=== PATIENT | female | born 1965 | race Caucasian/White ===

== ENCOUNTER 2017-05-15 22:16 | Observation (INO) | payer BC ==
[~2017-05-15] VITALS: Ht 172.7 cm; Wt 90.0 kg
[~2017-05-15 22:16] MED LIST: IBUP400T20 PO; LANTUS2P SQ; LORA2TAB7 PO; METF-382 PO; NAPR500 PO; NOVORP2 SQ
[2017-05-15 22:18] VITALS: BP 163/92; PULSE 102; RESP 18; TEMP 98.9; O2SAT 96
[2017-05-15 22:36] VITALS: BP 165/88; PULSE 90; RESP 18; O2SAT 96
[2017-05-15] MEDS ORDERED: NOVOLOGP2 SQ (22:36)
--- NOTE | 2017-05-15 22:39 | PD ---
HPI Chief Complaint: Chest Pain Time Seen by Provider: 22:39 Travel History International Travel<30 days: No Contact w/Intl Traveler<30days: No Traveled to known affect area: No History of Present Illness HPI 51-year-old female came to the emergency room with history of chest pain that has been there waxing and waning for past 2 days. Patient says it's on the left side of her chest going down her left breast and to her left shoulder and down her left arm up to the elbow. It's a dull ache and discomfort. No aggravating or relieving factor she has identified. Vital signs are stable. Patient has history of diabetes and she has noticed that for past couple days her sugar has been running high anywhere between 350-500. She says she has been taking her medications like she supposed to and the sugars still seems out of control. Her friend is here with her and says that patient has been going through a lot of domestic stress. She has history of high cholesterol upon asking the patient says she is not on any medications for it. She does have a primary care physician. She is not a smoker. No associated shortness of breath or syncopal episode. No history of recent prolonged hospitalization or long distance travel. PFSH Past Medical History Narrative Medical List of her past medical, surgical, social and family history is reviewed from the nursing note. Anemia: Yes (WITH BLOOD TRANSFUSION ) Asthma: No Blood Disorders: No Anxiety: No Depression: No Heart Rhythm Problems: No Cancer: No Cardiovascular Problems: No High Cholesterol: Yes Chemotherapy: No Chest Pain: Yes Congestive Heart Failure: No COPD: No Developmental Delay: Yes Diabetes: Yes Patient Takes Glucophage: Yes (METFORMIN) Diminished Hearing: No Endocrine: No Genitourinary: No Immune Disorder: No Musculoskeletal: No Neurologic: No Psychiatric: No Reproductive: No Respiratory: No Immunizations Current: No Radiation Therapy: No Sleep Apnea: Yes Thyroid Disease: No Influenza Vaccination: No ?: Not Menopausal: Yes : 3 Para: 3 Past Surgical History Abdominal Surgery: Yes (HERNIA REPAIR W/MESH, ABDOMINOPLASTY) Section: Yes (X3) Gynecologic Surgery: Yes (hysterectomy) Hysterectomy: Yes Other Surgery: Yes Social History Alcohol Use: No (DENIES) Tobacco Use: No Substance Use: No Allergies-Medications (Allergen,Severity, Reaction): Coded Allergies: *MDRO Multi-Drug Resistant Organism (Verified Adverse Reaction, Unknown, 05/15/17) MRSA (abdomen-03/29/16) Comments List of her allergies reviewed from the nursing note. Reported Meds & Prescriptions Reported Meds & Active Scripts Active Lisinopril 5 Mg Tab 5 Mg PO DAILY Reported Lantus Inj (Insulin Glargine) 1,000 Unit/10 Ml Vial 60 Units SQ HS Victoza Inj (Liraglutide Inj) 18 Mg/3 Ml Pen 1.8 Mg SQ DAILY Novolog Inj (Insulin Aspart) 1,000 Unit/10 Ml Vial 1-9 Units SQ ACHS Max dose at bedtime:( )units; sugars less than 70,(0)units; sugars 150-199,(1) unit; sugars 200-249,(3) units; sugars 250-299,(5) units; sugars 300-349,(7) units; sugars greater than 349,(9) units Lorazepam 2 Mg Tab 2 Mg PO HS PRN Metformin ER (Metformin HCl) 1,000 Mg Celestina 1,000 Mg PO BID With evening meal Narrative Medication List of her home medications reviewed from the nursing note. Review of Systems Except as stated in HPI: all other systems reviewed are Neg Cardiovascular: Positive: Chest Pain or Discomfort Physical Exam Narrative GENERAL: Awake, alert, moderate distress, morbidly obese SKIN: Focused skin assessment warm/dry. HEAD: Atraumatic. Normocephalic. EYES: Pupils equal and round. No scleral icterus. No injection or drainage. ENT: No nasal bleeding or discharge. Mucous membranes pink and moist. NECK: Trachea midline. No JVD. CARDIOVASCULAR: Regular rate and rhythm. No murmur appreciated. RESPIRATORY: No accessory muscle use. Clear to auscultation. Breath sounds equal bilaterally. GASTROINTESTINAL: Abdomen soft, non-tender, nondistended. Hepatic and splenic margins not palpable. MUSCULOSKELETAL: No obvious deformities. No clubbing. No cyanosis. No edema. NEUROLOGICAL: Awake and alert. No obvious cranial nerve deficits. Motor grossly within normal limits. Normal speech. PSYCHIATRIC: Appropriate mood and affect; insight and judgment normal. Data Data Last Documented VS Orders Orders Electrocardiogram (05/15/17 23:01) Basic Metabolic Panel (Bmp) (05/15/17 23:01) Ckmb (Isoenzyme) Profile (05/15/17 23:01) Complete Blood Count With Diff (05/15/17:) Magnesium (Mg) (05/15/17:) Prothrombin Time / Inr (Pt) (05/15/17:) Act Partial Throm Time (Ptt) (05/15/17:) Troponin I (05/15/17:) Chest, Single Ap (05/15/17:) Ecg Monitoring (05/15/17:) Bilateral Bp Monitoring (05/15/17:) Iv Access Insert/Monitor (05/15/17:) Oximetry (05/15/17:) Oxygen Administration (05/15/17:) Aspirin Chew (Aspirin Chew) (05/15/17:) Sodium Chloride 0.9% Flush (Ns Flush) (05/15/17:) Nitroglycerin Sl (Nitrostat Sl) (05/15/17:15) CKMB (05/15/17 23:10) CKMB% (05/15/17 23:10) Metformin (Glucophage) (05/16/17 00:15) Admit Order (Ed Use Only) (05/16/17 00:09) Place In Observation (05/16/17 00:09) Activity Bed Rest With Brp (05/16/17 00:09) Vital Signs (Adult) Q4H (05/16/17 00:09) Cardiac Rhythm .As Directed (05/16/17 00:09) Notify Dr: Other .PRN (05/16/17 00:09) Notify DrCarla Parameters (05/16/17 00:09) Resp Oxygen Nasal Cannula (05/16/17 ) Ckmb (Isoenzyme) Profile (05/16/17 00:09) Ckmb (Isoenzyme) Profile (05/16/17 03:09) Troponin I (05/16/17 00:09) Troponin I (05/16/17 03:09) Electrocardiogram (05/16/17 00:09) Electrocardiogram (05/16/17 03:09) ^ Obtain (05/16/17 00:09) Sodium Chloride 0.9% Flush (Ns Flush) (05/16/17:15) Sodium Chloride 0.9% Flush (Ns Flush) (05/16/17 09:00) Acetaminophen (Tylenol) (05/16/17 00:15) Ondansetron Inj (Zofran Inj) (05/16/17 00:15) Nitroglycerin Sl (Nitrostat Sl) (05/16/17 00:15) Verifier Operator / Telemetry [id number] (05/16/17 00:09) Labs Laboratory Tests Test 05/15/17 23:10 White Blood Count 8.2 TH/MM3 Red Blood Count 4.75 MIL/MM3 Hemoglobin 14.2 GM/DL Hematocrit 41.3 % Mean Corpuscular Volume 86.9 FL Mean Corpuscular Hemoglobin 29.9 PG Mean Corpuscular Hemoglobin Concent 34.4 % Red Cell Distribution Width 13.5 % Platelet Count 364 TH/MM3 Mean Platelet Volume 7.4 FL Neutrophils (%) (Auto) 45.8 % Lymphocytes (%) (Auto) 42.1 % Monocytes (%) (Auto) 9.9 % Eosinophils (%) (Auto) 1.1 % Basophils (%) (Auto) 1.1 % Neutrophils # (Auto) 3.8 TH/MM3 Lymphocytes # (Auto) 3.5 TH/MM3 Monocytes # (Auto) 0.8 TH/MM3 Eosinophils # (Auto) 0.1 TH/MM3 Basophils # (Auto) 0.1 TH/MM3 CBC Comment DIFF FINAL Differential Comment Prothrombin Time 9.9 SEC Prothromb Time International Ratio 0.9 RATIO Activated Partial Thromboplast Time 29.7 SEC Blood Urea Nitrogen 11 MG/DL Creatinine 0.68 MG/DL Random Glucose 303 MG/DL Calcium Level 9.2 MG/DL Magnesium Level 2.2 MG/DL Sodium Level 134 MEQ/L Potassium Level 3.7 MEQ/L Chloride Level 101 MEQ/L Carbon Dioxide Level 25.8 MEQ/L Anion Gap 7 MEQ/L Estimat Glomerular Filtration Rate 92 ML/MIN Total Creatine Kinase 106 U/L Creatine Kinase MB 1.4 NG/ML Troponin I LESS THAN 0.02 NG/ML MDM Medical Decision Making Medical Screen Exam Complete: Yes Emergency Medical Condition: Yes Medical Record Reviewed: Yes Interpretation(s) Twelve-lead EKG was reviewed by me. Normal sinus rhythm, normal axis, nonspecific ST-T wave changes, LVH by voltage criteria. Heart rate of 95 bpm. Differential Diagnosis ACS, non-STEMI Narrative Course 12:19 AM blood test results are back. Troponin is negative. Blood sugar is 303. I have ordered 500 mg of metformin for her. Initially patient was given 2 baby aspirin and 1 sublingual nitroglycerin. After the nitroglycerin patient says the pain feels better. Patient has significant risk factors for coronary artery disease namely diabetes which is uncontrolled, hypertension, high cholesterol and obesity. I have decided to admit her to the chest pain center so she can be seen by the supervisor bottle house cleaners and ACS ruled out. Patient is agreeable to that plan. Procedures EKG Prior to Arrival: No Diagnosis Primary Impression: Chest pain Qualified Codes: R07.9 - Chest pain, unspecified Additional Impression: Hyperglycemia Admitting Information Admitting Physician Requests: Observation Scripts Lisinopril (Lisinopril) 5 Mg Tab 5 MG PO DAILY for Blood Pressure Management, #30 TAB 2 Refills Prov: Sigrid Burnett WHEAT WASHER 05/16/17 Isabelle Patrick MD May 15, 2017 22:39
[2017-05-15] MEDS ORDERED: NITROGLYCERIN 0.4 MG SL 25 TABS/BTL SL ONE (23:15)
[2017-05-15] MEDS ORDERED: SODIUM CHLORIDE 0.9% FLUSH 10 ML FLUSH IVF PRN (23:15)
[2017-05-15] MEDS ORDERED: ASPIRIN 81 MG CHEW TAB PO ONE (23:15)
[2017-05-15 23:31] LABS: AUTOMATED NEUTROPHIL # 3.8 TH/MM3 (1.8-7.7); BASOPHIL # 0.1 TH/MM3 (0-0.2); BASOPHIL % 1.1 % (0.0-2.0); EOSINOPHIL # 0.1 TH/MM3 (0-0.4); EOSINOPHIL % 1.1 % (0.0-4.0); HEMATOCRIT 41.3 % (35.0-46.0); HEMO FLAGS DIFF FINAL; LYMPH % 42.1 % (9.0-44.0); LYMPHOCYTE # 3.5 TH/MM3 (1.0-4.8); MEAN CELL VOLUME 86.9 FL (80.0-100.0); MEAN CORPUSCULAR HEMOGLOBIN 29.9 PG (27.0-34.0); MEAN CORPUSCULAR HGB CONC 34.4 % (32.0-36.0); MONO % 9.9 % (0.0-8.0); NEUT % 45.8 % (16.0-70.0); PLATELET COUNT 364 TH/MM3 (150-450); RED BLOOD COUNT 4.75 MIL/MM3 (4.00-5.30); RED CELL DISTRIBUTION WIDTH 13.5 % (11.6-17.2); WHITE BLOOD COUNT 8.2 TH/MM3 (4.0-11.0)
--- NOTE | 2017-05-15 23:38 | RADRPT ---
EXAM DATE/TIME: 05/15/2017 23:17 [facility] COMPARISON: No previous studies available for comparison. INDICATIONS : Chest pain in medial chest. MEDICAL HISTORY : None. SURGICAL HISTORY : None. ENCOUNTER: Initial ACUITY: 1 day PAIN SCORE: 0/10 LOCATION: Bilateral chest FINDINGS: A single view of the chest demonstrates the lungs to be symmetrically aerated without evidence of mas s, infiltrate or effusion. The cardiomediastinal contours are unremarkable. Osseous structures are intact. CONCLUSION: No acute disease. Stefan Robledo MD on May 15, 2017 at 23:36 Board Certified Radiologist. This report was verified electronically.
[2017-05-15 23:42] LABS: APTT (PATIENT) 29.7 SEC (24.3-30.1); INTERNATIONAL NORMALIZED RATIO 0.9 RATIO; PROTHROMBIN TIME - PATIENT 9.9 SEC (9.8-11.6)
[2017-05-15 23:51] LABS: ANION GAP 7 MEQ/L (5-15); BICARBONATE 25.8 MEQ/L (21.0-32.0); BLOOD UREA NITROGEN 11 MG/DL (7-18); CHLORIDE 101 MEQ/L (98-107); GLOMERULAR FILTRATION RATE 92 ML/MIN (>89); MAGNESIUM 2.2 MG/DL (1.5-2.5); POTASSIUM 3.7 MEQ/L (3.5-5.1); SODIUM (NA) 134 MEQ/L (136-145)
[2017-05-15 23:55] LABS: CREATINE KINASE 106 U/L (26-192)
[2017-05-16] VITALS (8 sets, daily range): BP systolic 116–132; BP diastolic 60–73; PULSE 73–94; RESP 17–20; TEMP 98.1–98.4; O2SAT 95–98
[2017-05-16 00:08] LABS: CKMB 1.4 NG/ML (0.5-3.6)
[2017-05-16] MEDS ORDERED: ONDANSETRON HCL 4 MG/2 ML VIAL IV PUSH PRN (00:15)
[2017-05-16] MEDS ORDERED: ACETAMINOPHEN 500 MG CPLT PO PRN ×2 (00:15→08:15)
[2017-05-16] MEDS ORDERED: NITROGLYCERIN 0.4 MG SL 25 TABS/BTL SL PRN (00:15)
[2017-05-16] MEDS ORDERED: metFORMIN HCL 500 MG TAB PO ONE (00:15)
[2017-05-16] MEDS ORDERED: SODIUM CHLORIDE 0.9% FLUSH 10 ML FLUSH IV FLUSH PRN (00:15)
[2017-05-16 03:15] LABS: CREATINE KINASE 87 U/L (26-192)
[2017-05-16 05:54] LABS: CREATINE KINASE 57 U/L (26-192)
--- NOTE | 2017-05-16 08:03 | HHI.HP ---
HPI Primary Care Physician Guero Humphries DO Chief Complaint Chest pain History of Present Illness 51 year old female with history of Type II diabetes (dx age 28) and hyperlipidemia (currently not taking medications) presents to the ER for further evaluation of chest pain. Onset 2 weeks ago, progressively worse over last 2 days. Location left anterior chest and under left breast. Radiation to left shoulder and left arm. Characterized as stabbing pain. Duration constant x2 days. Last 2 weeks discomfort waxed and waned in intensity without any known precipitating factors. No associated symptoms of N, V, dyspnea, or diaphoresis. No known precipitating or relieving factors. Severity initially rated 10/10 currently rated 6/10. No particular movements or position makes pain better or worse. Endorses similar pain approx. 4-5 years ago. Review of Systems General: No fatigue,weakness, fever, chills, recent illness, or change in appetite. Reports glucose has been uncontrolled with ranges 300-500. States her PCP instructed her to see an magnetic resonance imaging coordinator due to uncontrolled diabetes. She is in process of establishing with endocrinology. HEENT: No SUMNER, no vision changes CV: And he needs to have chest pain as stated above. No palpitations or dizziness. No know CAD. RESP: No SOB, cough, wheeze, of history of asthma. No recent upper respiratory illness. GI: No nausea, vomiting, or bowel changes. No change in appetite, no unintentional weight gain or weight loss. : No dysuria, urgency, frequency. VASCULAR SURGERY PHYSICIAN: Reports current yeast infection started 2 days ago, has not tried over the counter remedies. Requesting Diflucan. Hx hysterectomy. EXT: Bilateral lower extremities neuropathy. MS: No change in ROM, injury, fall, or recent trauma. NEURO: No difficulty with balance, LOC, motor/sensory deficits PSYCH: No anxiety, depression, or situational stress. SKIN: No rashes, no concerning lesions Past Family Social History Allergies: Coded Allergies: *MDRO Multi-Drug Resistant Organism (Verified Adverse Reaction, Unknown, 05/15/17) MRSA (abdomen-03/29/16) Past Medical History Type 2 Diabetes (dx age 28), HLD (currently not on statins, quit taking 3 years ago), anemia, neuropathy Past Surgical History Hysterectomy, x3, hernia repair with mesh, abdominoplasty Reported Medications Reported Meds & Active Scripts Active Reported Novolog Inj (Insulin Aspart) 1,000 Unit/10 Ml Vial 1-9 Units SQ ACHS Max dose at bedtime:( )units; sugars less than 70,(0)units; sugars 150-199,(1) unit; sugars 200-249,(3) units; sugars 250-299,(5) units; sugars 300-349,(7) units; sugars greater than 349,(9) units Lorazepam 2 Mg Tab 2 Mg PO HS PRN Ibuprofen 400 Mg Tab 400 Mg PO Q6H PRN Metformin ER (Metformin HCl) 1,000 Mg Celestina 1,000 Mg PO BID With evening meal Lantus 60 units QHS Victoza 1.8mg Subq QD Active Ordered Medications Current Medications Medications (Trade) Dose Ordered Sig/Christy Route Start Time Stop Time Status Last Admin (NS Flush) 2 ml UNSCH PRN IVF 05/15/17 23:15 05/15/17 23:15 (NS Flush) 2 ml UNSCH PRN IV FLUSH 05/16/17 00:15 (NS Flush) 2 ml BID IV FLUSH 05/16/17 09:00 (Tylenol) 500 mg Q4H PRN PO 05/16/17 00:15 05/16/17 01:57 (Zofran Inj) 4 mg Q6H PRN IV PUSH 05/16/17 00:15 (Nitrostat Sl) 0.4 mg Q5M PRN SL 05/16/17 00:15 Family History Positive for early onset cardiovascular disease. Father had total of 4 MIs, first [place] age 45. Mother from CHF, complications diabetes, and had a CVA. Sister CAD with stent placed age 46. Social History Known diabetes, reporting recently uncontrolled. Known hyperlipidemia, reporting changing PCP 3 years ago and new PCP did not continue statin therapy. No known CAD or hypertension. Lifelong nonsmoker. Denies alcohol or illegal drug use. Disabled. Walks reporting she must stop after 1/2 mile due to neuropathy pain. Past Cardiac Testing 03/16/11 Lexiscan-Negative for stress induced ischemia. EF 54%. Recently reestablished with Dr. Thorpe, seen him 2 months ago. No recent stress testing. Reports he ordered a stress test but was unable to pay required co-pay to complete test. Physical Exam Vital Signs Vital Signs Date Time Temp Pulse Resp B/P (MAP) Pulse Ox O2 Delivery O2 Flow Rate FiO2 05/16/17 07:20 98.1 75 20 128/73 (91) 95 05/16/17 05:46 74 05/16/17 02:14 98.3 77 17 116/73 (87) 98 05/16/17 00:48 97 05/16/17 00:07 85 18 125/66 (85) 97 Room Air 05/15/17 22:36 90 18 165/88 (113) 96 Room Air 05/15/17 22:18 98.9 102 18 163/92 (115) 96 Room Air Physical Exam GENERAL: Alert WN, WD, NAD, pleasant, obese female HEAD: NC, AT EYES: Sclera clear, conjunctiva without injection, pupils equal and round ENT: Mucous membranes pink and moist, no nasal discharge or bleeding CV: RRR, 1/6 faint systolic murmur, without rub, gallop, no JVD, S1-S2 no S3- S4. RESP: Clear lungs throughout bilateral, no crackles, wheeze, rhonchi, symmetrical chest rise, nonlabored, able to speak in full sentences ABD: Soft, NT, ND, positive bowel tones, obese EXT: Pulses +24, no dependent edema MS: Normal tone 4 extremities, nontender, no obvious deformities, full range of motion NEURO: CN II through CN XII grossly intact, motor strength 5/5 PSYCH: A+O 3, pleasant affect, appropriate speech, appropriate mood and affect , insight and judgment SKIN: Normal turgor, normal texture, no lesions, no rashes, brisk cap refill, even hair distribution Laboratory Laboratory Tests Test 05/15/17 23:10 05/16/17 02:41 05/16/17 05:00 White Blood Count 8.2 Red Blood Count 4.75 Hemoglobin 14.2 Hematocrit 41.3 Mean Corpuscular Volume 86.9 Mean Corpuscular Hemoglobin 29.9 Mean Corpuscular Hemoglobin Concent 34.4 Red Cell Distribution Width 13.5 Platelet Count 364 Mean Platelet Volume 7.4 Neutrophils (%) (Auto) 45.8 Lymphocytes (%) (Auto) 42.1 Monocytes (%) (Auto) 9.9 Eosinophils (%) (Auto) 1.1 Basophils (%) (Auto) 1.1 Neutrophils # (Auto) 3.8 Lymphocytes # (Auto) 3.5 Monocytes # (Auto) 0.8 Eosinophils # (Auto) 0.1 Basophils # (Auto) 0.1 CBC Comment DIFF FINAL Differential Comment Prothrombin Time 9.9 Prothromb Time International Ratio 0.9 Activated Partial Thromboplast Time 29.7 Blood Urea Nitrogen 11 Creatinine 0.68 Random Glucose 303 Calcium Level 9.2 Magnesium Level 2.2 Sodium Level 134 Potassium Level 3.7 Chloride Level 101 Carbon Dioxide Level 25.8 Anion Gap 7 Estimat Glomerular Filtration Rate 92 Total Creatine Kinase 106 87 57 Creatine Kinase MB 1.4 Troponin I LESS THAN 0.02 LESS THAN 0.02 LESS THAN 0.02 Result Diagram: 05/15/17230905/15/172309 Imaging Last Impressions Chest X-Ray 05/15/172300 Signed Impressions: Service Date/Time: Monday, May 15, 2017 23:17 - CONCLUSION: No acute disease. Stefan Robledo MD Course EKG NSR, nonspecific ST changes Caprini VTE Risk Assessment Caprini VTE Risk Assessment: No/Low Risk (score <= 1) Caprini Risk Assessment Model Point Value = 1 Point Value = 2 Point Value = 3 Point Value = 5 Age 41-60 Minor surgery BMI > 25 kg/m2 Swollen legs Varicose veins or History of unexplained or recurrent spontaneous Oral contraceptives or hormone replacement Sepsis (< 1 month) Serious lung disease, including pneumonia (< 1 month) Abnormal pulmonary function Acute myocardial infarction Congestive heart failure (< 1 month) History of inflammatory bowel disease Medical patient at bed rest Age 61-74 Arthroscopic surgery Major open surgery (> 45 min) Laparoscopic surgery (> 45 min) Malignancy Confined to bed (> 72 hours) Immobilizing plaster cast Central venous access Age >= 75 History of VTE Family history of VTE Factor V Leiden Prothrombin [id number] Lupus anticoagulant Anticardiolipin antibodies Elevated serum homocysteine Heparin-induced thrombocytopenia Other congenital or acquired thrombophilia Stroke (< 1 month) Elective arthroplasty Hip, pelvis, or leg fracture Acute spinal cord injury (< 1 month) Prophylaxis Regimen Total Risk Factor Score Risk Level Prophylaxis Regimen 0-1 Low Early ambulation 2 Moderate Order ONE of the following: *Sequential Compression Device (SCD) *Heparin 5000 units SQ BID 3-4 Higher Order ONE of the following medications: *Heparin 5000 units SQ TID *Enoxaparin/Lovenox 40 mg SQ daily (WT < 150 kg, CrCl > 30 mL/min) *Enoxaparin/Lovenox 30 mg SQ daily (WT < 150 kg, CrCl > 10-29 mL/min) *Enoxaparin/Lovenox 30 mg SQ BID (WT < 150 kg, CrCl > 30 mL/min) AND/OR *Sequential Compression Device (SCD) 5 or more Highest Order ONE of the following medications: *Heparin 5000 units SQ TID (Preferred with Epidurals) *Enoxaparin/Lovenox 40 mg SQ daily (WT < 150 kg, CrCl > 30 mL/min) *Enoxaparin/Lovenox 30 mg SQ daily (WT < 150 kg, CrCl > 10-29 mL/min) *Enoxaparin/Lovenox 30 mg SQ BID (WT < 150 kg, CrCl > 30 mL/min) AND *Sequential Compression Device (SCD) Assessment and Plan Assessment and Plan #1 Atypical chest pain-admitted to chest pain center. Ruled out with 3 sets of EKGs, cardiac enzymes, and monitored overnight. Seen and evaluated by Dr. German. Chest discomfort most likely musculoskeletal in nature. Due to multiple risk factors will proceed with nuclear treadmill stress testing. If unremarkable will discharge later this afternoon with follow-up with PCP. #2 Diabetes type 2-SSI moderate dose coverage, continue lantus and victoza, discussed importance of tight blood glucose control, reducing sugar, refined flour, and sugary drink intake. Discussed importance of following up with endocrinology as instructed by her PCP. Diabetic guidelines for statin and LILO inhibitor therapy discussed. Follow with PCP and discuss both these therapies. Lisinopril 5mg QD prescription given. #3 Vaginal candidiasis-Fluconazole 150mg PO single dose 1305-discussed lexiscan results in length, including dyskinetic findings suggest may be due to computer misidentification. Copy of report given at discharge for her records and her PCP. Sigrid Burnett May 16, 2017 08:03
[2017-05-16] MEDS ORDERED: GLUCAGON 1 MG/ML VIAL OTHER PRN (08:15)
[2017-05-16] MEDS ORDERED: DEXTROSE 50% IN WATER 50 ML VIAL(D50) IV PUSH PRN (08:15)
[2017-05-16] MEDS ORDERED: SODIUM CHLORIDE 0.9% FLUSH 10 ML FLUSH IV FLUSH SCH (09:00)
[2017-05-16] MEDS ORDERED: ASPIRIN 325 MG TAB PO SCH (09:00)
[2017-05-16] MEDS ORDERED: FLUCONAZOLE 100 MG TAB PO ONE (11:15)
[2017-05-16] MEDS ORDERED: VICT18IN SQ (11:19)
[2017-05-16] MEDS ORDERED: LANTUS2P SQ (11:19)
[2017-05-16] MEDS ORDERED: PILL SPLITTER OTHER PRN (11:30)
[2017-05-16] MEDS ORDERED: INSULIN ASPART SUPPLEMENTAL SCALE SQ SCH (12:00)
--- NOTE | 2017-05-16 12:16 | RADRPT ---
EXAM DATE/TIME: 05/16/2017 09:51 [facility] COMPARISON: MYOCARDIAL PERF TREADMILL SPECT, GATED W/EF, March 16, 2011, 16:16. INDICATIONS : Angina DOSE: 26.5 mCi Tc99m Myoview at stress 8.4 mCi Tc99m Myoview at rest REST HEART RATE: 105 BPM TARGET HEART RATE: 145 BPM MAX HEART RATE: 142 BPM REST BLOOD PRESSURE: 124/78 mmHg MAX BLOOD PRESSURE: 148/80 mmHg EJECTION FRACTION: 59% MEDICAL HISTORY : Hypercholesterolemia. SURGICAL HISTORY : Hysterectomy. section. Abdominoplasty ENCOUNTER: Initial ACUITY: 2 days LOCATION: Left chest TECHNIQUE: The patient underwent upright treadmill exercise in the chest pain center. Continuous ECG tracing wa s monitored during stress. Gated SPECT imaging was performed after stress, and conventional SPECT im aging was performed at rest. The examination was performed on a SPECT/CT scanner, both attenuation-c orrected and non-corrected datasets were reviewed. FINDINGS: DISTRIBUTION: The maximum perfused segment at stress is in the lateral wall. PERFUSION STUDY: The pattern of perfusion at stress is within normal limits with regional variations in perfusion in t he left ventricular segments on the attenuation corrected data set with a 25%. No evidence of redist ribution.. GATED STUDY: There is intact wall motion and thickening. There is questionable dyskinesia of the basal septal seg ment; this is potentially due to missed tracking of the ventricular wall by the computer algorithm. CONCLUSION: 1. No evidence of stress-induced ischemia. 2. Left ventricular ejection fraction is normal at 59%. 3. Questionable dyskinesia of the basal septal wall is probably due to misregistration of the compute r wall identification. If there is clinical concern for dyskinesia, further assessment with echocard iography could be considered. RISK CATEGORY: Low (<1% Annual Mortality Rate) Daniel Vasquez MD on May 16, 2017 at 12:05 Board Certified Radiologist. This report was verified electronically.
[2017-05-16] MEDS ORDERED: METFORMIN 1000 MG PO SCH (12:45)
[2017-05-16] MEDS ORDERED: NON-FORMULARY DRUG (Liraglutide Inj (Victoza Inj) 1.8 MG) SQ SCH (12:45)
--- NOTE | 2017-05-16 12:52 | EKG ---
Date Performed: 05/15/2017 Time Performed: 22:30:13 PTAGE: 51 years EKG: Sinus rhythm MODERATE VOLTAGE CRITERIA FOR LVH, CONSIDER NORMAL VARIANT NONSPECIFIC T-WAVE ABNORMALITY BORDERLINE ECG Since previous tracing, no significant change noted NO PREVIOUS TRACING DOCTOR: Fernanda German Interpretating Date/Time 05/16/2017 12:52:15
--- NOTE | 2017-05-16 12:55 | EKG ---
Date Performed: 05/16/2017 Time Performed: 03:17:53 PTAGE: 51 years EKG: Sinus rhythm MINIMAL VOLTAGE CRITERIA FOR LVH, CONSIDER NORMAL VARIANT BORDERLINE ECG Since PREVIOUS TRACING , no significant change noted PREVIOUS TRACIN03/04/2016 13.36 DOCTOR: Fernanda German Interpretating Date/Time 05/16/2017 12:55:14
--- NOTE | 2017-05-16 12:56 | EKG ---
Date Performed: 05/16/2017 Time Performed: 05:34:55 PTAGE: 51 years EKG: Sinus rhythm NORMAL ECG Since PREVIOUS TRACING , no significant change noted PREVIOUS TRACIN05/16/2017 03.17 DOCTOR: Fernanda German Interpretating Date/Time 05/16/2017 12:55:25
--- NOTE | 2017-05-16 12:59 | TR ---
Date Performed: 05/16/2017 Time Performed: 10:37:48 DOCTOR: Fernanda German DRUG LIST: CLINICAL HISTORY: CHEST PAIN REASON FOR TEST: REASON FOR ENDING: OBSERVATION: CONCLUSION: Mike protocol completed. Stopped sec to reaching target heart rate and leg fatigue. Maximum GE=768 Target HR Achieved=83.0% Maximum IH=995/80 Total Exercise Time=4:36. No repord chest pain. No ectopy. Fair exercise tolerance. Normal bp response. REcovery quick and unremarkable. Nucle ar images pending. COMMENTS:
[2017-05-16] MEDS ORDERED: LISI-519 PO (13:28)
--- NOTE | 2017-05-16 13:28 | HHI.DCPOC ---
Discharge Care Plan Diagnosis: (1) Musculoskeletal chest pain (2) Type 2 diabetes mellitus Goals to Promote Your Health * To prevent worsening of your condition and complications * To maintain your health at the optimal level Directions to Meet Your Goals Take your medications as prescribed Follow your dietary instruction Follow activity as directed Keep your appointments as scheduled Take your immunizations and boosters as scheduled If your symptoms worsen call your PCP, if no PCP go to Urgent Care Center or Emergency Room Smoking is Dangerous to Your Health. Avoid second hand smoke Call the 24-hour hour crisis hotline for domestic abuse at Sigrid Burnett May 16, 2017 13:28
== END 2017-05-16 14:25 | disposition home or self-care (01) ==
LOC: NEPC 22:16 → NEDA 05-16 00:15 → NEPGCP 05-16 01:49
PROVIDERS: ADMIT Internal Medicine Cardiovascular Disease; ATTEND Internal Medicine Cardiovascular Disease
DX: R07.89 Other chest pain (principal); E11.65 Type 2 diabetes mellitus with hyperglycemia; B37.3 Candidiasis of vulva and vagina; R94.31 Abnormal electrocardiogram [ECG] [EKG]; E78.5 Hyperlipidemia, unspecified; G47.30 Sleep apnea, unspecified; G62.9 Polyneuropathy, unspecified; Z79.899 Other long term (current) drug therapy
CPT/HCPCS: 71010; 78452; 80048; 82550; 82552; 82948; 83735; 84484; 85025; 85610; 85730; 93005; 93017; 96372; 99285; A9502; G0378; J1815

== ENCOUNTER 2017-06-29 20:59 | Emergency (ER) | payer BC ==
[~2017-06-29] VITALS: Ht 172.7 cm; Wt 98.6 kg
[~2017-06-29 20:59] MED LIST changes: -IBUP400T20 PO; +LISI-519 PO; -NAPR500 PO; +NOVOLOGP2 SQ; -NOVORP2 SQ; +VICT18IN SQ
[2017-06-29 21:01] VITALS: BP 170/83; PULSE 107; RESP 18; TEMP 97.5; O2SAT 98
[2017-06-29 21:25] VITALS: BP 170/83; PULSE 107; RESP 18; TEMP 97.5; O2SAT 98
--- NOTE | 2017-06-29 22:30 | RADRPT ---
EXAM DATE/TIME: 06/29/2017 22:07 [facility] COMPARISON: No previous studies available for comparison. INDICATIONS : No known injury. Pain radiating down left hip and leg for four days. MEDICAL HISTORY : Diabetes mellitus type II. SURGICAL HISTORY : None. ENCOUNTER: Initial ACUITY: 1 day PAIN SCORE: 7/10 LOCATION: Left Hip FINDINGS: Mild degenerative changes are noted involving the hip joints bilaterally. No acute fracture or disloc ation of the left hip. CONCLUSION: No acute fracture or dislocation of the left hip. Mild degenerative changes involving the hips bilaterally. Aleksander Fish MD on June 29, 2017 at 22:26 Board Certified Radiologist. This report was verified electronically.
--- NOTE | 2017-06-29 22:31 | PD ---
HPI . Hip and low back pain Chief Complaint: Musculoskeletal Complaint Time Seen by Provider: 21:43 Travel History International Travel<30 days: No Contact w/Intl Traveler<30days: No Traveled to known affect area: No History of Present Illness HPI This patient presents with chief complaint of left hip and left low back pain. Onset was 4 days ago. Pain is exacerbated by standing and stepping. She rates the pain 8/10. She mentions that she is out of her Lortab and that she is followed by pain management but did not see pain management this past week because they want to refer her to a neurosurgeon. She states that she is followed by pain management because of back pain. PFSH Past Medical History Anemia: Yes (WITH BLOOD TRANSFUSION ) Asthma: No Blood Disorders: No Anxiety: No Depression: No Heart Rhythm Problems: No Cancer: No Cardiac Catheterization: No Cardiovascular Problems: No High Cholesterol: Yes Chemotherapy: No Chest Pain: Yes Congestive Heart Failure: No COPD: No Developmental Delay: Yes Diabetes: Yes Patient Takes Glucophage: Yes Diminished Hearing: No Endocrine: No Genitourinary: No Immune Disorder: No Musculoskeletal: No Neurologic: No Psychiatric: No Reproductive: No Respiratory: No Immunizations Current: No Radiation Therapy: No Sleep Apnea: Yes Thyroid Disease: No Influenza Vaccination: No ?: Not Menopausal: Yes : 3 Para: 3 Past Surgical History Abdominal Surgery: Yes (HERNIA REPAIR W/MESH, ABDOMINOPLASTY) Section: Yes (X3) Coronary Artery Bypass Graft: No Gynecologic Surgery: Yes (hysterectomy) Hysterectomy: Yes (Complete) Other Surgery: Yes Family History Family Myocardial Infarction: Yes (MOTHER AND FATHER ) Social History Alcohol Use: No (DENIES) Tobacco Use: No Substance Use: No Allergies-Medications (Allergen,Severity, Reaction): Coded Allergies: *MDRO Multi-Drug Resistant Organism (Verified Adverse Reaction, Unknown, 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 (abdomen-03/29/16) Reported Meds & Prescriptions Reported Meds & Active Scripts Active Lisinopril 5 Mg Tab 5 Mg PO DAILY Reported Lantus Inj (Insulin Glargine) 1,000 Unit/10 Ml Vial 60 Units SQ HS Victoza Inj (Liraglutide Inj) 18 Mg/3 Ml Pen 1.8 Mg SQ DAILY Novolog Inj (Insulin Aspart) 1,000 Unit/10 Ml Vial 1-9 Units SQ ACHS Max dose at bedtime:( )units; sugars less than 70,(0)units; sugars 150-199,(1) unit; sugars 200-249,(3) units; sugars 250-299,(5) units; sugars 300-349,(7) units; sugars greater than 349,(9) units Lorazepam 2 Mg Tab 2 Mg PO HS PRN Metformin ER (Metformin HCl) 1,000 Mg Celestina 1,000 Mg PO BID With evening meal Review of Systems Musculoskeletal: Positive: Myalgias, Arthralgias Physical Exam Narrative GENERAL: Awake and alert and in no acute distress. SKIN: Warm and dry. HEAD: Normocephalic/atraumatic. EYES: Pupils are equal. Extraocular movements are intact. NECK: Normal range of motion. CARDIOVASCULAR: Regular rate and rhythm. RESPIRATORY: Nonlabored respirations. MUSCULOSKELETAL: Atraumatic. Her pain is in the left groin and left buttock. No significant tenderness to palpation. No pain with log rolling of the hip. Distally neurovascularly intact. NEUROLOGICAL: Nonfocal. PSYCHIATRIC: Appropriate mood and affect. Data Data Last Documented VS Vital Signs Date Time Temp Pulse Resp B/P (MAP) Pulse Ox O2 Delivery O2 Flow Rate FiO2 06/29/17 21:28 18 06/29/17 21:25 97.5 18 170/83 (112) 98 Orders Orders Hip, Uni(Ap&Lat) W Ap Pelvis (06/29/17 21:43) MDM Medical Decision Making Medical Screen Exam Complete: Yes Emergency Medical Condition: Yes Differential Diagnosis Differential diagnosis of joint pain includes but is not limited to arthritis, gout, sprain/strain, fracture, dislocation, bursitis Narrative Course This patient presents with left hip and buttock pain. It is atraumatic. She reports that she is out of Lortab which she takes for chronic back pain. Left hip x-ray to my interpretation is negative for fracture or dislocation. She needs to follow-up with her primary care physician or pain management physician for continued pain management. In the meantime, she may take an over- the-counter analgesics. Diagnosis Primary Impression: Left hip pain Patient Instructions: General Instructions, Hip Pain (ED) Additional Instructions: [id number] pain medication as needed. Disposition: 01 DISCHARGE HOME Condition: Stable Melanie Nolan MD Jun 29, 2017 22:31
[2017-06-29 22:41] VITALS: BP 140/77
== END 2017-06-29 22:45 | disposition home or self-care (01) ==
LOC: PHED 20:59
DX: M25.552 Pain in left hip (principal); E11.9 Type 2 diabetes mellitus without complications; Z79.4 Long term (current) use of insulin
CPT/HCPCS: 73502; 99283

== ENCOUNTER 2017-08-23 20:08 | Emergency (ER) | payer BC, OTHER ==
[2017-08-23 20:22] VITALS: BP 134/80; PULSE 97; RESP 20; TEMP 99; O2SAT 97
[2017-08-23 21:03] LABS: BILIRUBIN, URINE NEG (NEG); BLOOD, URINE NEG (NEG); GLUCOSE,URINE 1000 OR GREATER mg/dL (NEG); KETONE, URINE NEG (NEG); NITRITE,URINE NEG (NEG); URINE LEUKOCYTE ESTERASE NEG (NEG)
[2017-08-23] MEDS ORDERED: LISI10TA3 PO (21:07)
[2017-08-23 21:12] LABS: URINE COLOR STRAW (YELLW/STRAW)
[2017-08-23 21:13] LABS: SQUAMOUS EPITHELIAL CELL URINE 0-5 /hpf (0-5); WBC, URINE 0-2 /hpf (0-5)
[2017-08-23 21:38] VITALS: BP 135/75; PULSE 88; RESP 18; O2SAT 98
[2017-08-23 21:54] LABS: AUTOMATED NEUTROPHIL # 3.8 TH/MM3 (1.8-7.7); BASOPHIL % 0.5 % (0.0-2.0); CHLORIDE 98 MEQ/L (98-107); EOSINOPHIL # 0.1 TH/MM3 (0-0.4); EOSINOPHIL % 1.7 % (0.0-4.0); HEMATOCRIT 43.4 % (35.0-46.0); HEMOGLOBIN 13.9 GM/DL (11.6-15.3); LYMPH % 40.4 % (9.0-44.0); MEAN CELL VOLUME 87.7 FL (80.0-100.0); MEAN CORPUSCULAR HEMOGLOBIN 28.1 PG (27.0-34.0); MEAN CORPUSCULAR HGB CONC 32.1 % (32.0-36.0); MEAN PLATELET VOLUME 6.9 FL (7.0-11.0); MONO % 7.7 % (0.0-8.0); MONOCYTE # 0.6 TH/MM3 (0-0.9); NEUT % 49.7 % (16.0-70.0); PLATELET COUNT 412 TH/MM3 (150-450); RED BLOOD COUNT 4.94 MIL/MM3 (4.00-5.30); RED CELL DISTRIBUTION WIDTH 13.1 % (11.6-17.2); SODIUM (NA) 132 MEQ/L (136-145); WHITE BLOOD COUNT 7.5 TH/MM3 (4.0-11.0)
[2017-08-23 21:58] LABS: ALBUMIN 3.6 GM/DL (3.4-5.0); BICARBONATE 28.2 MEQ/L (21.0-32.0); BLOOD UREA NITROGEN 14 MG/DL (7-18); CALCIUM 8.6 MG/DL (8.5-10.1); GLUCOSE,RANDOM 400 MG/DL (74-106)
[2017-08-23 22:01] LABS: ALT (GPT) 28 U/L (10-53); AST (GOT) 15 U/L (15-37); CREATININE 0.86 MG/DL (0.50-1.00); GLOMERULAR FILTRATION RATE 70 ML/MIN (>89)
[2017-08-23 22:03] LABS: TOTAL BILIRUBIN ADULT 0.2 MG/DL (0.2-1.0)
[2017-08-23 22:04] LABS: ALKALINE PHOSPHATASE 195 U/L (45-117)
[2017-08-23] MEDS ORDERED: IOHEXOL 350 MG/ML 10 ML VIAL (for RAD DIAG) IVCONTRAST ONE (22:17)
--- NOTE | 2017-08-23 22:22 | PD ---
HPI Chief Complaint: Abdominal Pain Time Seen by Provider: 21:26 Travel History International Travel<30 days: No Contact w/Intl Traveler<30days: No Traveled to known affect area: No History of Present Illness HPI 51yo F with PMH of DM presents to the ED with c/o right lower abdominal pain for weeks but worst for the last few days. Said pain is sharp, intermittent and radiates from suprapubic to right lower abdomen. Denies any fever, chest pain, sob, n/v, abdominal pain, focal weakness or numbness. PSH include hysterectomy and hernia repair. PFSH Past Medical History Anemia: Yes (WITH BLOOD TRANSFUSION ) Asthma: No Blood Disorders: No Anxiety: No Depression: No Heart Rhythm Problems: No Cancer: No Cardiac Catheterization: No Cardiovascular Problems: No High Cholesterol: Yes Chemotherapy: No Chest Pain: Yes Congestive Heart Failure: No COPD: No Developmental Delay: Yes Diabetes: Yes Patient Takes Glucophage: Yes (1000mg 08/22/17 1900) Diminished Hearing: No Endocrine: No Genitourinary: No Immune Disorder: No Musculoskeletal: No Neurologic: No Psychiatric: No Reproductive: No Respiratory: No Immunizations Current: No Radiation Therapy: No Sleep Apnea: Yes Thyroid Disease: No Influenza Vaccination: No ?: Not Menopausal: Yes : 3 Para: 3 Past Surgical History Abdominal Surgery: Yes (HERNIA REPAIR W/MESH, ABDOMINOPLASTY) Section: Yes (X3) Coronary Artery Bypass Graft: No Gynecologic Surgery: Yes (hysterectomy) Hysterectomy: Yes Other Surgery: Yes Family History Family Myocardial Infarction: Yes (MOTHER AND FATHER ) Social History Alcohol Use: No (DENIES) Tobacco Use: No Substance Use: No Allergies-Medications (Allergen,Severity, Reaction): Coded Allergies: *MDRO Multi-Drug Resistant Organism (Verified Adverse Reaction, Unknown, 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 (abdomen-03/29/16) Reported Meds & Prescriptions Reported Meds & Active Scripts Active Novolog Inj (Insulin Aspart) 1,000 Unit/10 Ml Vial 1-9 Units SQ ACHS 10 Days Max dose at bedtime:( )units; sugars less than 70,(0)units; sugars 150-199,(1) unit; sugars 200-249,(3) units; sugars 250-299,(5) units; sugars 300-349,(7) units; sugars greater than 349,(9) units Tylenol (Acetaminophen) 325 Mg Tab 650 Mg PO Q6H PRN Reported Lisinopril 10 Mg Tab 10 Mg PO DAILY Lantus Inj (Insulin Glargine) 1,000 Unit/10 Ml Vial 60 Units SQ HS Victoza Inj (Liraglutide Inj) 18 Mg/3 Ml Pen 1.8 Mg SQ DAILY Novolog Inj (Insulin Aspart) 1,000 Unit/10 Ml Vial 1-9 Units SQ ACHS Max dose at bedtime:( )units; sugars less than 70,(0)units; sugars 150-199,(1) unit; sugars 200-249,(3) units; sugars 250-299,(5) units; sugars 300-349,(7) units; sugars greater than 349,(9) units Lorazepam 2 Mg Tab 2 Mg PO HS PRN Metformin ER (Metformin HCl) 1,000 Mg Celestina 1,000 Mg PO BID With evening meal Review of Systems Except as stated in HPI: all other systems reviewed are Neg Physical Exam Narrative GENERAL: 51yo F in mild distress. SKIN: Focused skin assessment warm/dry. HEAD: Atraumatic. Normocephalic. EYES: Pupils equal and round. No scleral icterus. No injection or drainage. ENT: No nasal bleeding or discharge. Mucous membranes pink and moist. NECK: Trachea midline. No JVD. CARDIOVASCULAR: Regular rate and rhythm. No murmur appreciated. RESPIRATORY: No accessory muscle use. Clear to auscultation. Breath sounds equal bilaterally. GASTROINTESTINAL: Abdomen soft, +TTP RLQ. +TTP suprapubic region. No rebound tenderness or guarding. MUSCULOSKELETAL: No obvious deformities. No clubbing. No cyanosis. No edema. NEUROLOGICAL: Awake and alert. No obvious cranial nerve deficits. Motor grossly within normal limits. Normal speech. PSYCHIATRIC: Appropriate mood and affect; insight and judgment normal. Data Data Last Documented VS Vital Signs Date Time Temp Pulse Resp B/P (MAP) Pulse Ox O2 Delivery O2 Flow Rate FiO2 08/23/17 23:46 08/23/17 23:45 87 18 98 Room Air 08/23/17 20:22 99.0 Orders Orders Urinalysis - C+S If Indicated (08/23/17 20:50) Complete Blood Count With Diff (08/23/17 21:29) Comprehensive Metabolic Panel (08/23/17 21:29) Lipase (08/23/17 21:29) Ct Abd/Pel W Iv Contrast(Rout) (08/23/17 21:29) Iohexol 350 Inj (Omnipaque 350 Inj) (08/23/17 22:17) Sodium Chlor 0.9% 1000 Ml Inj (Ns 1000 M (08/23/17 22:30) Insulin Human Regular Inj (Novolin R Inj (08/23/17 22:30) Morphine Inj (Morphine Inj) (08/23/17 22:30) Blood Glucose (08/23/17 22:56) Ed Discharge Order (08/23/17 23:34) Labs Laboratory Tests Test 08/23/17 20:50 08/23/17 21:30 Urine Color STRAW Urine Turbidity CLEAR Urine pH 6.0 Urine Specific [place] 1.030 Urine Protein NEG mg/dL Urine Glucose (UA) 1000 OR GREATER mg/dL Urine Ketones NEG mg/dL Urine Occult Blood NEG Urine Nitrite NEG Urine Bilirubin NEG Urine Leukocyte Esterase NEG Urine WBC 0-2 /hpf Urine Squamous Epithelial Cells 0-5 /hpf Microscopic Urinalysis Comment CULT NOT INDICATED White Blood Count 7.5 TH/MM3 Red Blood Count 4.94 MIL/MM3 Hemoglobin 13.9 GM/DL Hematocrit 43.4 % Mean Corpuscular Volume 87.7 FL Mean Corpuscular Hemoglobin 28.1 PG Mean Corpuscular Hemoglobin Concent 32.1 % Red Cell Distribution Width 13.1 % Platelet Count 412 TH/MM3 Mean Platelet Volume 6.9 FL Neutrophils (%) (Auto) 49.7 % Lymphocytes (%) (Auto) 40.4 % Monocytes (%) (Auto) 7.7 % Eosinophils (%) (Auto) 1.7 % Basophils (%) (Auto) 0.5 % Neutrophils # (Auto) 3.8 TH/MM3 Lymphocytes # (Auto) 3.0 TH/MM3 Monocytes # (Auto) 0.6 TH/MM3 Eosinophils # (Auto) 0.1 TH/MM3 Basophils # (Auto) 0.0 TH/MM3 CBC Comment DIFF FINAL Differential Comment Blood Urea Nitrogen 14 MG/DL Creatinine 0.86 MG/DL Random Glucose 400 MG/DL Total Protein 8.0 GM/DL Albumin 3.6 GM/DL Calcium Level 8.6 MG/DL Alkaline Phosphatase 195 U/L Aspartate Amino Transf (AST/SGOT) 15 U/L Alanine Aminotransferase (ALT/SGPT) 28 U/L Total Bilirubin 0.2 MG/DL Sodium Level 132 MEQ/L Potassium Level 4.0 MEQ/L Chloride Level 98 MEQ/L Carbon Dioxide Level 28.2 MEQ/L Anion Gap 6 MEQ/L Estimat Glomerular Filtration Rate 70 ML/MIN Lipase 338 U/L [facility] Medical Decision Making Medical Screen Exam Complete: Yes Emergency Medical Condition: Yes Differential Diagnosis IBS vs. colitis vs. appendicitis Narrative Course 51yo F with DM here with lower abdominal pain for weeks. Labs reviewed, no leukocytosis. H/H normal. Lipase normal. Glucose elevated at 400. Normal anion gap. Normal CO2. Pt given NS IVF and 10 units of regular insulin. UA showed no leukocyte. Pt given morphine with improvement of pain. CT a/p showed no acute abnormality. Appendix is normal. Hepatomegaly with mild diffuse fatty infiltration. Repeat glucose 277. Instructed pt to follow up with primary care physician. Pt is requesting I give her a prescription for novolog. Diagnosis Primary Impression: Abdominal pain Qualified Codes: R10.30 - Lower abdominal pain, unspecified Patient Instructions: General Instructions Departure Forms: Tests/Procedures Additional Instructions: Please follow up with your primary care physician regarding your elevated blood glucose. Return to the ED if symptoms worsen. Med/Other Pt SpecificInfo: Prescription(s) given Scripts Insulin Aspart Inj (Novolog Inj) 1,000 Unit/10 Ml Vial 1-9 UNITS SQ ACHS for Blood Sugar Management for 10 Days, #10 ML 0 Refills Max dose at bedtime:( )units; sugars less than 70,(0)units; sugars 150-199,(1) unit; sugars 200-249,(3) units; sugars 250-299,(5) units; sugars 300-349,(7) units; sugars greater than 349,(9) units Prov: Cornelia Duque DO 08/23/17 Acetaminophen (Tylenol) 325 Mg Tab 650 MG PO Q6H Y for PAIN SCALE 1 TO 4, #20 TAB 0 Refills Prov: Cornelia Duque DO 08/23/17 Disposition: 01 DISCHARGE HOME Condition: Stable Cornelia Duque DO Aug 23, 2017 22:22
[2017-08-23] MEDS ORDERED: SODIUM CHLOR 0.9% 1000 ML INJ 1,000 ML IV ONE (22:30)
[2017-08-23] MEDS ORDERED: INSULIN HUMAN REGULAR 1,000 UNITS/10 ML VIAL SQ ONE (22:30)
[2017-08-23] MEDS ORDERED: MORPHINE SULFATE 2 MG/ML INJ IV PUSH ONE (22:30)
--- NOTE | 2017-08-23 22:44 | RADRPT ---
EXAM DATE/TIME: 08/23/2017 22:04 [facility] COMPARISON: No previous studies available for comparison. INDICATIONS : Abdominal pain. IV CONTRAST: 100 cc Omnipaque 350 (iohexol) IV ORAL CONTRAST: No oral contrast ingested. RADIATION DOSE: 21.36 CTDIvol (mGy) MEDICAL HISTORY : Diabetes mellitus type 2. Hypertension. SURGICAL HISTORY : Hysterectomy. Hernia repair w/ mesh. Abdominoplasty. ENCOUNTER: Initial ACUITY: 1 week PAIN SCALE: 7/10 LOCATION: abdomen TECHNIQUE: Volumetric scanning of the abdomen and pelvis was performed. Using automated exposure control and ad justment of the mA and/or kV according to patient size, radiation dose was kept as low as reasonably achievable to obtain optimal diagnostic quality images. DICOM format image data is available electro nically for review and comparison. FINDINGS: LOWER LUNGS: The visualized lower lungs are clear. LIVER: Mild hepatomegaly with mild diffuse fatty infiltration is noted. No focal mass is noted. There is no dilation of the biliary tree. No calcified gallstones. SPLEEN: Normal size without lesion. PANCREAS: Within normal limits. KIDNEYS: Normal in size and shape. There is no mass, stone or hydronephrosis. ADRENAL GLANDS: Within normal limits. VASCULAR: There is no aortic aneurysm. BOWEL/MESENTERY: The stomach, small bowel, and colon demonstrate no acute abnormality. There is no free intraperitone al air or fluid. The appendix is normal. ABDOMINAL WALL: Within normal limits. RETROPERITONEUM: There is no lymphadenopathy. BLADDER: No wall thickening or mass. REPRODUCTIVE: Within normal limits. INGUINAL: There is no lymphadenopathy or hernia. MUSCULOSKELETAL: Within normal limits for patient age. CONCLUSION: Hepatomegaly with mild diffuse fatty infiltration. Aleksander Fish MD on August 23, 2017 at 22:39 Board Certified Radiologist. This report was verified electronically.
[2017-08-23] MEDS ORDERED: TYLE325T PO (23:01)
[2017-08-23 23:45] VITALS: BP 145/75; PULSE 87; RESP 18; O2SAT 98
[2017-08-23] MEDS ORDERED: NOVOLOGP2 SQ (23:48)
--- NOTE | 2017-08-24 00:49 | HHI.PR ---
Subjective Remarks Patient was seen in er for abdominal pain and also having severe diabetes and has been unable to get prescription from a doctor for insulin. Patient joined [facility] in July and still has not been able to get medication other then metformin and has glucose reading 400 . On exam her abdomen is benign ,CT abdomen showed fatty liver . ER gave patient 10units regular insulin with improvemetn to 200 and will be discharged with prescription for humalog she had been on lantus 65 units ,humulog sliding scale metformin and victosa . [facility] will follow up as out patient ,i will look in [facility] system and find out who patient is assigned to and arrange follow up and medication refill as she is on insulin and according to patient has always had high glucos will refer to [facility] endocrine as well. Objective Vitals GENERAL: SKIN: Warm and dry. HEAD: Atraumatic. Normocephalic. EYES: Pupils equal and round. No scleral icterus. No injection or drainage. ENT: No nasal bleeding or discharge. Mucous membranes pink and moist. NECK: Trachea midline. No JVD. CARDIOVASCULAR: Regular rate and rhythm. RESPIRATORY: No accessory muscle use. Clear to auscultation. Breath sounds equal bilaterally. GASTROINTESTINAL: Abdomen soft, non-tender, nondistended. Hepatic and splenic margins not palpable. MUSCULOSKELETAL: Extremities without clubbing, cyanosis, or edema. No obvious deformities. NEUROLOGICAL: Awake and alert. No obvious cranial nerve deficits. Motor grossly within normal limits. Five out of 5 muscle strength in the arms and legs. Normal speech. PSYCHIATRIC: Appropriate mood and affect; insight and judgment normal. Vital Signs Date Time Temp Pulse Resp B/P (MAP) Pulse Ox O2 Delivery O2 Flow Rate FiO2 08/23/17 23:46 08/23/17 23:45 87 18 145/75 (98) 98 Room Air 08/23/17 21:38 88 18 135/75 (95) 98 Room Air 08/23/17 20:22 99.0 97 20 134/80 (98) 97 Result Diagram: 08/23/17212908/23/172129 Imaging Last 24 hours Impressions Abdomen/Pelvis CT 08/23/172128 Signed Impressions: Service Date/Time: Wednesday, August 23, 2017 22:04 - CONCLUSION: Hepatomegaly with mild diffuse fatty infiltration. Aleksander Fish MD A/P Problem List: (1) Diabetes ICD Codes: E11.9 - Diabetes mellitus Status: Chronic Plan: at this point unknown if type 1 or 2 most likely type 1 as has been on insulin since her 20"s ,as above arrange for follow up. (2) Abdominal pain ICD Codes: R10.9 - Unspecified abdominal pain Status: Chronic Plan: CT unremarkable maybe more of a gastroparesis also has neuropathy from diabetes plan as above arrange follow up. Assessment and Plan as above Stiven Rios MD Aug 24, 2017 00:48
== END 2017-08-24 00:08 | disposition home or self-care (01) ==
LOC: PHED 20:08
DX: R10.31 Right lower quadrant pain (principal); R16.0 Hepatomegaly, not elsewhere classified; E11.9 Type 2 diabetes mellitus without complications; Z79.4 Long term (current) use of insulin
CPT/HCPCS: 74177; 80053; 81001; 83690; 85025; 96361; 96372; 96374; 99285; J1815; J2270; J7030; Q9967

== ENCOUNTER 2018-01-16 05:34 | Emergency (ER) | payer OTHER ==
[~2018-01-16] VITALS: Ht 172.7 cm; Wt 107.9 kg
[~2018-01-16 05:34] MED LIST changes: -LISI-519 PO; +LISI10TA3 PO; +TYLE325T PO
[2018-01-16 05:38] VITALS: BP 191/92; PULSE 96; RESP 16; TEMP 97.9; O2SAT 98
[2018-01-16] MEDS ORDERED: INSU1SOL SQ (05:51)
[2018-01-16] MEDS ORDERED: CINN1CAP PO (05:52)
[2018-01-16] MEDS ORDERED: SIMV10TA PO (05:52)
[2018-01-16] MEDS ORDERED: AMBI10TA PO (05:53)
[2018-01-16] MEDS ORDERED: INSULIN HUMAN REGULAR 1,000 UNITS/10 ML VIAL IV PUSH ONE (06:15)
[2018-01-16] MEDS: SODIUM CHLOR 0.9% 1000 ML INJ 1,000 ML IV SCH ×2 (06:16→07:05)
[2018-01-16] MEDS ORDERED: SODIUM CHLORIDE 0.9% FLUSH 10 ML FLUSH IVF PRN (06:30)
[2018-01-16] MEDS ORDERED: SODIUM CHLORIDE 0.9% FLUSH 10 ML FLUSH IV FLUSH PRN (06:30)
--- NOTE | 2018-01-16 06:30 | PD ---
HPI Chief Complaint: Diabetic Time Seen by Provider: 06:09 Travel History International Travel<30 days: No Contact w/Intl Traveler<30days: No Traveled to known affect area: No History of Present Illness HPI The patient is a 52-year-old insulin-dependent diabetic that states her blood sugar was 550 at home this morning. She took 30 units of NovoLog. She is followed by Dr. Anderson and mysql dba and her insulin his been changed lately. She does have frequent urination but no dysuria. She denies any nausea , vomiting or diarrhea. She states she has left lower quadrant pain of a 7/10. She states she has had in the recent past diarrhea but no diarrhea now. She has been referred to Dr. Arias about this abdominal pain but she has not seen yet. She has not had a CAT scan of this area. The patient has had a hysterectomy and there is no possibility of . The patient describes the abdominal pain as a sharp pain. The patient had umbilical hernia surgery with a mesh in the past. PFSH Past Medical History Anemia: Yes (WITH BLOOD TRANSFUSION ) Asthma: No Blood Disorders: No Anxiety: No Depression: No Heart Rhythm Problems: No Cancer: No Cardiac Catheterization: No High Cholesterol: Yes Chemotherapy: No Chest Pain: Yes Congestive Heart Failure: No COPD: No Developmental Delay: Yes Diabetes: Yes Patient Takes Glucophage: No Diminished Hearing: No Endocrine: No Immune Disorder: No Immunizations Current: No Radiation Therapy: No Sleep Apnea: Yes (NO CPAP CURRENTLY) Thyroid Disease: No Influenza Vaccination: Yes ?: Not Menopausal: Yes : 3 Para: 3 Past Surgical History Abdominal Surgery: Yes (HERNIA REPAIR W/MESH, ABDOMINOPLASTY) Section: Yes (X3) Coronary Artery Bypass Graft: No Gynecologic Surgery: Yes (hysterectomy) Hysterectomy: Yes (SEPTEMBER 1999) Other Surgery: Yes Family History Family Myocardial Infarction: Yes (MOTHER AND FATHER ) Social History Alcohol Use: No (DENIES) Tobacco Use: No (QUIT December,) Substance Use: No Allergies-Medications (Allergen,Severity, Reaction): Coded Allergies: *MDRO Multi-Drug Resistant Organism (Verified Adverse Reaction, Unknown, ) MRSA (abdomen-03/29/16) Reported Meds & Prescriptions Reported Meds & Active Scripts Active Reported Ambien (Zolpidem Tartrate) 10 Mg Tab 10 Mg PO HS PRN Hm Cinnamon (Cinnamon) 500 Mg Cap 2 Cap PO HS Simvastatin 10 Mg Tab 10 Mg PO HS Humulin R U-500 (Concentrate) Kwikpen Inj (Insulin Regular (Human) Concentrate Inj) 1,500 Units/3 Ml Pen 150 Units SQ TID Lisinopril 10 Mg Tab 10 Mg PO DAILY Novolog Inj (Insulin Aspart) 1,000 Unit/10 Ml Vial 1-9 Units SQ ACHS Max dose at bedtime:( )units; sugars less than 70,(0)units; sugars 150-199,(1) unit; sugars 200-249,(3) units; sugars 250-299,(5) units; sugars 300-349,(7) units; sugars greater than 349,(9) units Review of Systems Except as stated in HPI: all other systems reviewed are Neg Physical Exam Narrative GENERAL: The patient is obese, alert, oriented 3 in moderate apparent distress with her abdominal discomfort. Her vital signs show blood pressure 191/92 but are otherwise normal. The initial pulse was 96 but repeat pulse is 88. There is no ketotic smell to her breath. SKIN: Focused skin assessment warm/dry. There is slight redness of the skin in the umbilicus. The patient has apparently had a problem with infection in this area for months. HEAD: Atraumatic. Normocephalic. EYES: Pupils equal and round. No scleral icterus. No injection or drainage. ENT: No nasal bleeding or discharge. Mucous membranes pink and moist. NECK: Trachea midline. No JVD. CARDIOVASCULAR: Regular rate and rhythm. No murmur appreciated. RESPIRATORY: No accessory muscle use. Clear to auscultation. Breath sounds equal bilaterally. GASTROINTESTINAL: Abdomen soft, with tenderness to direct palpation in the left lower quadrant, nondistended. Hepatic and splenic margins not palpable. No guarding or rebound is present. MUSCULOSKELETAL: No obvious deformities. No clubbing. No cyanosis. No edema. NEUROLOGICAL: Awake and alert. No obvious cranial nerve deficits. Motor grossly within normal limits. Normal speech. PSYCHIATRIC: Appropriate mood and affect; insight and judgment normal. Data Data Last Documented VS Vital Signs Date Time Temp Pulse Resp B/P (MAP) Pulse Ox O2 Delivery O2 Flow Rate FiO2 01/16/18 06:41 87 18 164/89 (114) 98 Room Air 01/16/18 05:38 97.9 Orders Orders Sodium Chlor 0.9% 1000 Ml Inj (Ns 1000 M (01/16/18 06:15) Insulin Human Regular Inj (Novolin R Inj (01/16/18 06:15) Complete Blood Count With Diff (01/16/18 06:22) Comprehensive Metabolic Panel (01/16/18 06:22) Beta Hydroxybutyrate (Acetone) (01/16/18 06:22) Urinalysis - C+S If Indicated (01/16/18:22) Blood Glucose (01/16/18:22) Ecg Monitoring (01/16/18:22) Iv Access Insert/Monitor (01/16/18:22) Oximetry (01/16/18:22) NPO (01/16/18:22) Sodium Chloride 0.9% Flush (Ns Flush) (01/16/18 06:30) Lipase (01/16/18 06:22) Ct Abd/Pel W Iv Contrast(Rout) (01/16/18 06:30) Sodium Chloride 0.9% Flush (Ns Flush) (01/16/18 06:30) Labs Laboratory Tests Test 01/16/18 06:00 White Blood Count 7.4 TH/MM3 Red Blood Count 4.49 MIL/MM3 Hemoglobin 13.2 GM/DL Hematocrit 38.9 % Mean Corpuscular Volume 86.6 FL Mean Corpuscular Hemoglobin 29.5 PG Mean Corpuscular Hemoglobin Concent 34.0 % Red Cell Distribution Width 12.6 % Platelet Count 406 TH/MM3 Mean Platelet Volume 7.3 FL Neutrophils (%) (Auto) 45.0 % Lymphocytes (%) (Auto) 45.2 % Monocytes (%) (Auto) 6.3 % Eosinophils (%) (Auto) 2.0 % Basophils (%) (Auto) 1.5 % Neutrophils # (Auto) 3.4 TH/MM3 Lymphocytes # (Auto) 3.3 TH/MM3 Monocytes # (Auto) 0.5 TH/MM3 Eosinophils # (Auto) 0.1 TH/MM3 Basophils # (Auto) 0.1 TH/MM3 CBC Comment DIFF FINAL Differential Comment Urine Color YELLOW Urine Turbidity CLEAR Urine pH 6.5 Urine Specific [place] LESS/EQUAL 1.005 Urine Protein NEG mg/dL Urine Glucose (UA) 1000 OR GREATER mg/dL Urine Ketones NEG mg/dL Urine Occult Blood NEG Urine Nitrite NEG Urine Bilirubin NEG Urine Urobilinogen 0.2 MG/DL Urine Leukocyte Esterase NEG Urine Squamous Epithelial Cells 0-5 /hpf Microscopic Urinalysis Comment CULT NOT INDICATED Blood Urea Nitrogen 11 MG/DL Creatinine 0.80 MG/DL Random Glucose 469 MG/DL Total Protein 8.4 GM/DL Albumin 3.7 GM/DL Calcium Level 9.2 MG/DL Aspartate Amino Transf (AST/SGOT) 28 U/L Alanine Aminotransferase (ALT/SGPT) 38 U/L Total Bilirubin 0.3 MG/DL Sodium Level 131 MEQ/L Potassium Level 4.2 MEQ/L Chloride Level 97 MEQ/L Carbon Dioxide Level 24.8 MEQ/L Anion Gap 9 MEQ/L Estimat Glomerular Filtration Rate 76 ML/MIN Lipase 317 U/L MDM Medical Decision Making Medical Screen Exam Complete: Yes Emergency Medical Condition: Yes Medical Record Reviewed: Yes Differential Diagnosis Diabetes mellitus poor control, diverticulitis, occult infection, intra- abdominal abscess, electrolyte disorder, dehydration Narrative Course It is now 0658 and the patient is transferred to Marcelo Ohara MD Jan 16, 2018 06:30
[2018-01-16 06:37] LABS: AUTOMATED NEUTROPHIL # 3.4 TH/MM3 (1.8-7.7); BASOPHIL # 0.1 TH/MM3 (0-0.2); BASOPHIL % 1.5 % (0.0-2.0); EOSINOPHIL # 0.1 TH/MM3 (0-0.4); HEMATOCRIT 38.9 % (35.0-46.0); HEMOGLOBIN 13.2 GM/DL (11.6-15.3); LYMPH % 45.2 % (9.0-44.0); LYMPHOCYTE # 3.3 TH/MM3 (1.0-4.8); MEAN CELL VOLUME 86.6 FL (80.0-100.0); MEAN CORPUSCULAR HEMOGLOBIN 29.5 PG (27.0-34.0); MEAN PLATELET VOLUME 7.3 FL (7.0-11.0); MONO % 6.3 % (0.0-8.0); MONOCYTE # 0.5 TH/MM3 (0-0.9); PLATELET COUNT 406 TH/MM3 (150-450); RED BLOOD COUNT 4.49 MIL/MM3 (4.00-5.30); RED CELL DISTRIBUTION WIDTH 12.6 % (11.6-17.2); WHITE BLOOD COUNT 7.4 TH/MM3 (4.0-11.0)
[2018-01-16 06:41] VITALS: BP 164/89; PULSE 87; RESP 18; O2SAT 98
[2018-01-16 06:44] LABS: BILIRUBIN, URINE NEG (NEG); BLOOD, URINE NEG (NEG); GLUCOSE,URINE 1000 OR GREATER mg/dL (NEG); KETONE, URINE NEG (NEG); NITRITE,URINE NEG (NEG); PH, URINE 6.5 (5.0-8.5); URINE COLOR YELLOW (YELLW/STRAW); URINE LEUKOCYTE ESTERASE NEG (NEG)
[2018-01-16 06:46] LABS: CHLORIDE 97 MEQ/L (98-107); SODIUM (NA) 131 MEQ/L (136-145)
[2018-01-16 06:49] LABS: CALCIUM 9.2 MG/DL (8.5-10.1)
[2018-01-16 06:50] LABS: ALBUMIN 3.7 GM/DL (3.4-5.0); BICARBONATE 24.8 MEQ/L (21.0-32.0); SQUAMOUS EPITHELIAL CELL URINE 0-5 /hpf (0-5)
[2018-01-16 06:53] LABS: ALT (GPT) 38 U/L (10-53); AST (GOT) 28 U/L (15-37); BLOOD UREA NITROGEN 11 MG/DL (7-18)
[2018-01-16 06:54] LABS: GLUCOSE,RANDOM 469 MG/DL (74-106)
[2018-01-16 06:55] LABS: GLOMERULAR FILTRATION RATE 76 ML/MIN (>89); TOTAL BILIRUBIN ADULT 0.3 MG/DL (0.2-1.0); TOTAL PROTEIN 8.4 GM/DL (6.4-8.2)
[2018-01-16 06:59] VITALS: O2SAT 97
[2018-01-16 07:00] VITALS: BP 147/93; PULSE 87; RESP 18; O2SAT 97
[2018-01-16] MEDS ORDERED: INSULIN HUMAN REGULAR 1,000 UNITS/10 ML VIAL SQ ONE (07:15)
[2018-01-16] MEDS ORDERED: IOHEXOL 350 MG/ML 10 ML VIAL (for RAD DIAG) IVCONTRAST ONE (07:46)
[2018-01-16 07:54] LABS: ALKALINE PHOSPHATASE 177 U/L (45-117)
--- NOTE | 2018-01-16 07:56 | RADRPT ---
EXAM DATE: 01/16/2018 7:51 AM EDT AGE/SEX: 52 years / Female INDICATIONS: Mid abdominal pain. CLINICAL DATA: This is the patient's initial encounter. Patient reports that signs and symptoms have been present for 3 days and indicates a pain score of 5/10. MEDICAL/SURGICAL HISTORY: Diabetes. section. Hysterectomy. Hernia repair. ORAL CONTRAST: No oral contrast ingested. RADIATION DOSE: 22.17 CTDI (mGy) COMPARISON: [facility], CT ABDOMEN & PELVIS W CONTRAST, 08/23/2017. . TECHNIQUE: Multiple contiguous axial images were obtained through the abdomen and pelvis following b olus infusion of 95 ml Omnipaque 350 (iohexol) nonionic water-soluble contrast as a single exam dos e. No oral contrast ingested. Using automated exposure control and adjustment of the mA and/or kV ac cording to patient size, radiation dose was kept as low as reasonably achievable to obtain optimal di agnostic quality images. DICOM format image data is available electronically for review and comparis on. FINDINGS: Lower Lungs: The visualized lower lungs are clear. Liver: The liver has a homogeneous density without space-occupying lesion. There is no dilation of th e biliary tree. Spleen: Homogeneous density without enlargement. Pancreas: Unremarkable without mass or calcification. Kidneys: Normal in size and shape. No evidence of mass or hydronephrosis. Adrenal Glands: Unremarkable. Aorta: The aorta and proximal iliac vessels are grossly unremarkable without aneurysmal dilation. I ncidental left-sided IVC Bowel/Mesentery: The bowel loops are grossly unremarkable. The cecum and sigmoid colon have a normal configuration. Appendix is seen and is normal Abdominal Wall: Intact. Retroperitoneum: No evidence of adenopathy in the retrocrural, para-aortic, or deep pelvic regions. Bladder: Contours are smooth. Reproductive Organs: Uterus surgically absent. No evidence of pelvic mass or free fluid. Inguinal: The inguinal region is unremarkable without evidence of adenopathy. Bony Structures: Unremarkable. CONCLUSION: No acute CT findings in the abdomen or pelvis. Electronically signed by: Jonathan Lepe MD 01/16/2018 7:55 AM EDT
--- NOTE | 2018-01-16 08:01 | PD ---
Physical Exam Date Seen by Provider: Jan 16, 2018 Narrative Care was assumed at [address] of her abdomen and pelvis. She also still had some blood work pending. This patient presented with a chief complaint of hyperglycemia and with a secondary complaint of left lower quadrant abdominal pain. The left lower quadrant abdominal pain has been ongoing and she is supposed to be referred to a surgeon for further evaluation. The patient's glucose was elevated. She had been given insulin 12 units IV prior to my arrival. Repeat fingerstick blood sugar approximately 30 minutes later was around 300. Data Data Last Documented VS Vital Signs Date Time Temp Pulse Resp B/P (MAP) Pulse Ox O2 Delivery O2 Flow Rate FiO2 01/16/18 07:00 87 18 147/93 (111) 97 Room Air 01/16/18 05:38 97.9 Orders Orders Sodium Chlor 0.9% 1000 Ml Inj (Ns 1000 M (01/16/18 06:15) Insulin Human Regular Inj (Novolin R Inj (01/16/18 06:15) Complete Blood Count With Diff (01/16/18 06:22) Comprehensive Metabolic Panel (01/16/18 06:22) Beta Hydroxybutyrate (Acetone) (01/16/18 06:22) Urinalysis - C+S If Indicated (01/16/18 06:22) Blood Glucose (01/16/18 06:22) Ecg Monitoring (01/16/18 06:22) Iv Access Insert/Monitor (01/16/18 06:22) Oximetry (01/16/18 06:22) NPO (01/16/18 06:22) Sodium Chloride 0.9% Flush (Ns Flush) (01/16/18 06:30) Lipase (01/16/18 06:22) Ct Abd/Pel W Iv Contrast(Rout) (01/16/18 06:30) Sodium Chloride 0.9% Flush (Ns Flush) (01/16/18 06:30) Insulin Human Regular Inj (Novolin R Inj (01/16/18 07:15) Bedside Glucose JEB.CSUGAR (01/16/18 08:30) Iohexol 350 Inj (Omnipaque 350 Inj) (01/16/18 07:46) Labs Laboratory Tests Test 01/16/18 06:00 White Blood Count 7.4 TH/MM3 Red Blood Count 4.49 MIL/MM3 Hemoglobin 13.2 GM/DL Hematocrit 38.9 % Mean Corpuscular Volume 86.6 FL Mean Corpuscular Hemoglobin 29.5 PG Mean Corpuscular Hemoglobin Concent 34.0 % Red Cell Distribution Width 12.6 % Platelet Count 406 TH/MM3 Mean Platelet Volume 7.3 FL Neutrophils (%) (Auto) 45.0 % Lymphocytes (%) (Auto) 45.2 % Monocytes (%) (Auto) 6.3 % Eosinophils (%) (Auto) 2.0 % Basophils (%) (Auto) 1.5 % Neutrophils # (Auto) 3.4 TH/MM3 Lymphocytes # (Auto) 3.3 TH/MM3 Monocytes # (Auto) 0.5 TH/MM3 Eosinophils # (Auto) 0.1 TH/MM3 Basophils # (Auto) 0.1 TH/MM3 CBC Comment DIFF FINAL Differential Comment Urine Color YELLOW Urine Turbidity CLEAR Urine pH 6.5 Urine Specific [place] LESS/EQUAL 1.005 Urine Protein NEG mg/dL Urine Glucose (UA) 1000 OR GREATER mg/dL Urine Ketones NEG mg/dL Urine Occult Blood NEG Urine Nitrite NEG Urine Bilirubin NEG Urine Urobilinogen 0.2 MG/DL Urine Leukocyte Esterase NEG Urine Squamous Epithelial Cells 0-5 /hpf Microscopic Urinalysis Comment CULT NOT INDICATED Blood Urea Nitrogen 11 MG/DL Creatinine 0.80 MG/DL Random Glucose 469 MG/DL Total Protein 8.4 GM/DL Albumin 3.7 GM/DL Calcium Level 9.2 MG/DL Alkaline Phosphatase 177 U/L Aspartate Amino Transf (AST/SGOT) 28 U/L Alanine Aminotransferase (ALT/SGPT) 38 U/L Total Bilirubin 0.3 MG/DL Sodium Level 131 MEQ/L Potassium Level 4.2 MEQ/L Chloride Level 97 MEQ/L Carbon Dioxide Level 24.8 MEQ/L Anion Gap 9 MEQ/L Estimat Glomerular Filtration Rate 76 ML/MIN Lipase 317 U/L B-Hydroxybutyrate 0.12 MMOL/L MDM Supervised Visit with EDILIA: No Narrative Course CBC & BMP Diagram 01/16/18 06:00 Total Protein 8.4 H, Albumin 3.7, Calcium Level 9.2, Alkaline Phosphatase 177 H , Aspartate Amino Transf (AST/SGOT) 28, Alanine Aminotransferase (ALT/SGPT) 38, Total Bilirubin 0.3 Acetone is negative. UA is negative with the exception of glucose. Last Impressions Abdomen/Pelvis CT 01/16/18 0630 Impressions: CONCLUSION: No acute CT findings in the abdomen or pelvis. This patient is stable for discharge to home and further follow-up with her primary care provider. Diagnosis Primary Impression: Hyperglycemia Additional Impression: Abdominal pain Qualified Codes: R10.32 - Left lower quadrant pain Patient Instructions: Diabetic Hyperglycemia (DC), General Instructions Disposition: 01 DISCHARGE HOME Condition: Stable Melanie Nolan MD Jan 16, 2018 08:01
== END 2018-01-16 08:10 | disposition home or self-care (01) ==
LOC: PHED 05:34
DX: E11.65 Type 2 diabetes mellitus with hyperglycemia (principal); E78.00 Pure hypercholesterolemia, unspecified; Z79.4 Long term (current) use of insulin
CPT/HCPCS: 74177; 80053; 81001; 82010; 83690; 85025; 96361; 96374; 99284; J1815; J7030; Q9967